=== PATIENT | female | born 1955 | race American Indian/Alaskan Native ===

== ENCOUNTER 2017-08-10 09:14 | Outpatient (CLI) | payer MEDICAID ==
--- NOTE | 2017-08-10 14:42 | Cat Scan Report ---
CT pelvis with contrast: Nonspecific pelvic pain. Transverse images were obtained from the pelvic inlet to the ischium. IV and oral contrast administered. Coronal and sagittal reformatted images included. On the initial image there is a partially included 4 cm circumscribed cystic appearing structure just anterior to the mid right kidney. It's unclear as to whether this arises from the kidney but is contiguous on some of the available images. There is a primarily exophytic 18 mm cyst at the inferior right kidney. The uterus is present but hypotrophic consistent with patient's advancing age. There is a small cystic-appearing structure just posterior to the right uterus which may represent the ovary. The pelvis is otherwise unremarkable. The urinary bladder is decompressed and there is no contrast. A delayed image was not obtained. The partially visualized small bowel and colon is unremarkable with no inflammatory changes and no obvious hernia. There is a total left hip prosthesis and a right hip nail resulting in moderate streak artifact. There is a grade 1 anterior L4 subluxation with narrowing and degenerative gas in the L4-5 interspace. The L5-S1 apophyseal joints are degenerative. Impressions: 1. Right renal cyst in what may represent a larger cyst involving the upper kidney although the exact origin is unclear. 2. L4-5 subluxation with degenerative disc. 3. No acute pathology suspected.
== END 2017-08-10 09:15 | disposition home or self-care (01) ==
LOC: SPVIMAG 09:14
PROVIDERS: ATTEND General Practice
DX: N28.1 Cyst of kidney, acquired (principal); M43.5X6 Other recurrent vertebral dislocation, lumbar region; Z96.642 Presence of left artificial hip joint
CPT/HCPCS: 72193; Q9967

== ENCOUNTER 2017-09-07 12:54 | Emergency (ER) | payer MEDICAID ==
[2017-09-07 13:03] VITALS: BP 168/94
== END 2017-09-07 13:15 | disposition left against medical advice (07) ==
LOC: ED 12:54
DX: I10 Essential (primary) hypertension (principal); Z53.21 Procedure and treatment not carried out due to patient leaving prior to being seen by health care provider